=== PATIENT | male | born 2005 | race Caucasian/White ===

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

== ENCOUNTER 2025-03-05 17:52 | Emergency (ER) | payer OTHER ==
[~2025-03-05] VITALS: Ht 172.7 cm; Wt 68.2 kg
[~2025-03-05 17:52] MED LIST: BENA25CA4 PO; EPIN0.3I11 IM; PEPC1TAB5 PO; PRED20TA PO
[2025-03-05 19:12] VITALS: BP 127/63; TEMP 97.7; O2SAT 98
[2025-03-05] MEDS ORDERED: PRED20TA PO (19:42)
[2025-03-05] MEDS ORDERED: CEPH500C PO (19:42)
[2025-03-05] MEDS: CEPHALEXIN 500 MG CAP PO ONE (19:45)
[2025-03-05] MEDS: predniSONE 20 MG TAB PO ONE (19:45)
== END 2025-03-05 19:48 | disposition home or self-care (01) ==
LOC: M ED 17:52
DX: L30.9 Dermatitis, unspecified (principal); L66.2 Folliculitis decalvans; J30.89 Other allergic rhinitis; Z91.018 Allergy to other foods
CPT/HCPCS: 10160; 87070; 87077; 87186; 87205; 99283; J7512

== ENCOUNTER 2025-05-27 11:36 | Emergency (ER) | payer OTHER ==
[~2025-05-27] VITALS: Ht 172.7 cm; Wt 70.6 kg
[~2025-05-27 11:36] MED LIST changes: +CEPH500C PO
[2025-05-27 12:36] LABS: BASO # 0.1 10^3/uL (0.0-0.2); BASO % 0.4 % (0.0-1.0); EOS # 0.3 10^3/uL (0.0-0.5); EOS % 1.9 % (0.0-3.0); LYMPH # 1.3 10^3/uL (1.5-5.0); LYMPH % 9.2 % (24.0-44.0); MONO # 1.0 10^3/uL (0.0-0.8); MONO % 7.1 % (2.0-8.0); NEUTROPHILS # 11.8 10^3/uL (1.5-8.5); NEUTROPHILS % 81.1 % (36.0-66.0); PLATELET COUNT, AUTOMATED 239 10^3/uL (150-450)
[2025-05-27 13:11] LABS: AMPHETAMINES LEVEL URINE NEGATIVE (NEGATIVE); BARBITURATES URINE NEGATIVE (NEGATIVE); BENZODIAZEPINES URINE NEGATIVE (NEGATIVE); COCAINE METABOLITE URINE NEGATIVE (NEGATIVE); METHADONE URINE NEGATIVE (NEGATIVE); OPIATES URINE NEGATIVE (NEGATIVE)
[2025-05-27 13:12] LABS: CANNABINOIDS URINE NEGATIVE (NEGATIVE); PHENCYCLIDINE URINE NEGATIVE (NEGATIVE)
[2025-05-27 13:13] LABS: ETHYL ALCOHOL (ETHANOL) 0.005 % (0.000-0.010)
[2025-05-27 13:15] LABS: CALCIUM LEVEL 9.0 MG/DL (8.5-10.1); CARBON DIOXIDE LEVEL 29 MMOL/L (20-31); CHLORIDE LEVEL 104 MMOL/L (98-107); CREATININE FOR GFR 0.79 MG/DL (0.70-1.30); GLOMERULAR FILTRATION RATE > 90.0 (>60); MAGNESIUM LEVEL 1.9 MG/DL (1.8-2.4); POTASSIUM SERUM 4.1 MMOL/L (3.5-5.1); SODIUM LEVEL 144 MMOL/L (136-145)
[2025-05-27 13:17] LABS: FREE T4 1.25 NG/DL (0.83-1.43)
[2025-05-27] MEDS: NS (Normal Saline) 0.9% 1,000 ML IV ONE (14:00)
[2025-05-27] MEDS ORDERED: HOME MED LIST COMPLETE! XX SCH (14:05)
[2025-05-27] MEDS: KETOROLAC 30 MG/ML 1 ML VIAL IV ONE (14:16)
[2025-05-27 16:27] VITALS: BP 115/58; TEMP 97.6; O2SAT 100
== END 2025-05-27 16:34 | disposition home or self-care (01) ==
LOC: M ED 11:36
DX: R50.9 Fever, unspecified (principal); R11.0 Nausea; F17.200 Nicotine dependence, unspecified, uncomplicated; I45.10 Unspecified right bundle-branch block
CPT/HCPCS: 80048; 80307; 82077; 83605; 83735; 84439; 84443; 85025; 87486; 87581; 87633; 87798; 93005; 96374; 99284; J1885